=== PATIENT | female | born 1955 | race Caucasian/White ===

== ENCOUNTER 2019-12-08 09:10 | Day surgery (SDC) | payer OTHER ==
[2019-12-07 14:20] LABS: ALBUMIN 3.3 G/DL (3.4-5.0); ANION GAP 5 (8-16); BLOOD UREA NITROGEN 14 MG/DL (7-18); BUN/CREATININE RATIO 17.7 (6.6-38.0); CALCIUM 8.9 MG/DL (8.5-10.1); CHLORIDE 106 MMOL/L (99-107); CREATININE 0.79 MG/DL (0.40-0.90); GLUCOSE 118 MG/DL (70-104); POTASSIUM 3.8 MMOL/L (3.5-5.1); SODIUM 139 MMOL/L (135-145); TOTAL CARBON DIOXIDE 28.4 MMOL/L (24-32); eGFR 73 ML/MIN
[2019-12-07 14:22] LABS: BASOPHILS # (AUTO) 0.1 X10'3 (0-0.2); BASOPHILS % (AUTO) 0.9 % (0-1); EOSINOPHILS # (AUTO) 0.1 X10'3 (0-0.9); EOSINOPHILS % (AUTO) 1.2 % (0-6); HEMATOCRIT 39.6 % (35.0-45.0); HEMOGLOBIN 12.8 g/dl (12.0-16.0); LYMPHOCYTES # (AUTO) 1.7 X10'3 (1.1-4.8); LYMPHOCYTES % (AUTO) 20.1 % (21-51); MEAN CORPUSCULAR HEMOGLOBIN 26.6 PG (27.0-31.0); MEAN CORPUSCULAR HGB CONC 32.4 g/dL (33.0-36.5); MEAN CORPUSCULAR VOLUME 82.2 FL (78-98); MEAN PLATELET VOLUME 7.2 FL (7.4-10.4); MONOCYTES # (AUTO) 0.7 X10'3 (0-0.9); MONOCYTES % (AUTO) 8.3 % (2-12); NEUTROPHILS % (AUTO) 69.5 % (42-75); PLATELET COUNT 449 X10'3 (140-440); RED BLOOD COUNT 4.82 X10'6 (4.20-5.60); RED CELL DISTRIBUTION WIDTH 13.7 % (11.5-14.5); WHITE BLOOD COUNT 8.6 X10'3 (4.5-11.0)
[2019-12-07 14:24] LABS: PARTIAL THROMBOPLASTIN TIME 31 SECONDS (22-32)
[2019-12-08] VITALS (12 sets, daily range): BP systolic 125–174; BP diastolic 73–100
[~2019-12-08] VITALS: Ht 162.6 cm; Wt 80.1 kg
[2019-12-08] MEDS ORDERED: LIDOcaine/PRILOcaine 5gm cream TP ONE (09:35)
[2019-12-08] MEDS ORDERED: diphenhydrAMINE 25mg capsule PO PRN (09:35)
[2019-12-08] MEDS ORDERED: LORazepam 0.5 MG tablet PO PRN (09:35)
[2019-12-08] MEDS ORDERED: normal saline 1,000 ML IV SCH (09:35)
[2019-12-08] MEDS ORDERED: NAPR220T67 PO (09:45)
[2019-12-08] MEDS ORDERED: MULT-1085 PO (09:45)
[2019-12-08] MEDS ORDERED: ASPI-611 PO (09:45)
[2019-12-08] MEDS ORDERED: nitroGLYCERIN-Tridil 50MG/D5W 250 ML IV ONE (12:01)
[2019-12-08] MEDS ORDERED: LIDOcaine 1% (10mg/ml)w/preservative injection 20ml MDV ONE (12:01)
[2019-12-08] MEDS ORDERED: heparin 1,000unit/ml 10ml vial 10 ML ONE (12:01)
[2019-12-08] MEDS ORDERED: iohexol 350 MG/ML 50ML vial IV ONE (12:02)
[2019-12-08] MEDS ORDERED: iohexol 350MG/ML 100ml bottle IV ONE ×2 (12:02→12:59)
[2019-12-08] MEDS ORDERED: verapamil 2.5 mg/ml inj IV ONE (12:02)
[2019-12-08] MEDS ORDERED: fentaNYL/PF 50MCG/1 ML 2ML syringe ONE (12:30)
[2019-12-08] MEDS ORDERED: midazolam 2 mg/2 ml injection ONE (12:30)
[2019-12-08] MEDS ORDERED: heparin 25,000 UNIT/250ml bag 250 ML IV ONE (13:05)
[2019-12-08] MEDS ORDERED: heparin 1,000 UNITS/NS 500ml 500 ML ONE (13:06)
[2019-12-08] MEDS ORDERED: clopidogrel 300mg tablet ONE (13:33)
[2019-12-08] MEDS ORDERED: HYDROmorphone 1 mg/ml syringe ONE (13:40)
[2019-12-08] MEDS ORDERED: HYDROcodone/acetaminophen 10/325mg tab PO PRN ×2 (14:55)
[2019-12-08] MEDS ORDERED: OXAZEpam 15mg capsule PO PRN (14:55)
[2019-12-08] MEDS ORDERED: proCHLORperazine 10 MG/2 ml inj IV PRN (14:55)
[2019-12-08] MEDS ORDERED: acetaminophen 325mg tablet PO PRN (14:55)
[2019-12-08] MEDS ORDERED: magnesium hydroxide 30ml (MOM) UD suspension PO PRN (14:55)
[2019-12-08] MEDS ORDERED: cyclobenzaprine 10mg tablet PO PRN (14:55)
[2019-12-08] MEDS ORDERED: aspirin 81mg tab.chew PO ONE (15:00)
[2019-12-08 15:25] LABS: ISTAT HGB ART 12.2 g/dl (12.0-16.0); ISTAT Hct ART 36 %PCV (35-48); ISTAT O2 SATURATION ARTERIAL 98 % (95-98); ISTAT SOURCE ART
[2019-12-08] MEDS ORDERED: docusate sod 100mg capsule PO SCH (20:00)
[2019-12-09] MEDS ORDERED: clopidogrel 75mg tablet PO SCH (08:00)
[2019-12-09] MEDS ORDERED: aspirin 81mg tab.chew PO SCH (08:00)
== END 2019-12-08 20:20 | disposition home or self-care (01) ==
LOC: SSTAY O 09:10
PROVIDERS: ATTEND Internal Medicine Cardiovascular Disease
DX: R94.39 Abnormal result of other cardiovascular function study (principal); T82.855A Stenosis of coronary artery stent, initial encounter; I25.10 Atherosclerotic heart disease of native coronary artery without angina pectoris; E11.9 Type 2 diabetes mellitus without complications; E78.5 Hyperlipidemia, unspecified; M17.11 Unilateral primary osteoarthritis, right knee; I25.2 Old myocardial infarction; I15.1 Hypertension secondary to other renal disorders; Z95.5 Presence of coronary angioplasty implant and graft; Z79.01 Long term (current) use of anticoagulants; Z79.899 Other long term (current) drug therapy; Z79.82 Long term (current) use of aspirin; Z90.710 Acquired absence of both cervix and uterus; Z90.49 Acquired absence of other specified parts of digestive tract; Z98.890 Other specified postprocedural states; Z87.891 Personal history of nicotine dependence; Z82.49 Family history of ischemic heart disease and other diseases of the circulatory system; Z83.3 Family history of diabetes mellitus; Y83.8 Other surgical procedures as the cause of abnormal reaction of the patient, or of later complication, without mention of misadventure at the time of the procedure; Y92.89 Other specified places as the place of occurrence of the external cause
CPT/HCPCS: 36415; 76937; 80048; 82803; 85014; 85025; 85347; 85610; 85730; 93005; 93460; 99152; 99153; C1725; C1751; C1760; C1769; C1874; C1894; C9600; J1170; J1644; J2001; J2250; J3010; J7030; Q0163; Q9967; A4620; A5120; A6258; J3490